=== PATIENT | female | born 1985 | race Caucasian/White ===

== ENCOUNTER 2016-08-29 10:30 | Emergency (ER) | payer MEDICAID ==
[~2016-08-29] VITALS: Ht 175.3 cm; Wt 81.4 kg
[2016-08-29 11:29] LABS: HEMOGLOBIN 14.2 g/dL (11.7-16.4)
[2016-08-29] MEDS ORDERED: SODIUM CHLORIDE 0.9% 1,000ML IVBOLUS ONE (12:30)
[2016-08-29] MEDS ORDERED: SODIUM CHLORIDE FLUSH 10ML SYR IVF ONE (12:30)
[2016-08-29 12:35] LABS: PATH.CAST-FLAG NOT PRESENT; SPERM-FLAG NOT PRESENT; SRC-FLAG NOT PRESENT; XTAL-FLAG NOT PRESENT; YLC-FLAG NOT PRESENT
[2016-08-29] MEDS ORDERED: MISOPROSTOL 200 MCG TABLET PR ONE (13:00)
[2016-08-29] MEDS ORDERED: METHYLERGONOVINE 0.2 MG/ML IM ONE (13:00)
[2016-08-29 13:34] VITALS: BP 114/72
== END 2016-08-29 13:57 | disposition home or self-care (01) ==
LOC: ED 11:50
DX: O03.4 Incomplete spontaneous abortion without complication (principal)
CPT/HCPCS: 36415; 36430; 76801; 81001; 84702; 85025; 86850; 86900; 96372; 99285; J2210; J2790

== ENCOUNTER 2018-11-27 16:22 | Emergency (ER) | payer MEDICAID ==
[~2018-11-27] VITALS: Ht 175.3 cm; Wt 82.0 kg
[2018-11-27 16:25] VITALS: BP 162/93
[2018-11-27] MEDS ORDERED: DIPH,PERTUSS(ACELL),TET VAC/PF 0.5 ML IM-VACC ONE (16:30)
--- NOTE | 2018-11-27 16:35 | NUR ---
PT STATES SHE STEPPED ON 2 NAILS YESTERDAY.
--- NOTE | 2018-11-27 18:12 | NUR ---
Patient/Caregiver given discharge instructions and they have confirmed that they understand the instructions. Patient ambulatory with steady gait. Pt left with all personal belongings.
== END 2018-11-27 18:15 | disposition home or self-care (01) ==
LOC: ED 18:13
DX: S91.332A Puncture wound without foreign body, left foot, initial encounter (principal); W22.8XXA Striking against or struck by other objects, initial encounter; Y93.89 Activity, other specified; Y92.69 Other specified industrial and construction area as the place of occurrence of the external cause; Y99.0 Civilian activity done for income or pay
CPT/HCPCS: 90471; 90715

== ENCOUNTER 2019-04-06 20:08 | Emergency (ER) | payer MEDICAID ==
[~2019-04-06] VITALS: Ht 175.3 cm; Wt 79.5 kg
[2019-04-06 20:56] LABS: MICROSCOPIC NOT IND
[2019-04-06 20:57] LABS: CULTURE INDICATED? NO
--- NOTE | 2019-04-06 20:57 | NUR ---
pt ambulatory to ed accomp by friend. c/o constipation x6 days. took laxatives last night, had small amt liquid stool. c/o pain in RUQ/R flank area. abdomen semi firm. bs gurgly. sts passed gas after took laxatives. denies nausea. also c/o cramping RUQ abdomen. also c/o UTI sx: dysuria, frequency, urgency. urine sent. vss. awaiting md alba. call alba in reach.
--- NOTE | 2019-04-06 21:39 | NUR ---
pt to ct
[2019-04-06 21:42] LABS: BASOPHILS # (AUTO) 0.09 x10^3/uL (0-0.1); BASOPHILS % (AUTO) 1 % (0-1); EOSINOPHILS # (AUTO) 0.28 x10^3/uL (0-0.4); EOSINOPHILS % (AUTO) 2 % (1-7); LYMPHOCYTES # (AUTO) 3.18 x10^3/uL (1-3.4); LYMPHOCYTES % (AUTO) 26 % (22-44); MD NO; MEAN CORPUSCULAR HEMOGLOBIN 33.7 pg (27.0-34.8); MEAN CORPUSCULAR HGB CONC 34.2 g/dL (32.4-35.8); MEAN CORPUSCULAR VOLUME 98.7 fL (80-100); MEAN PLATELET VOLUME 8.6 fL (7.4-10.4); MONOCYTES # (AUTO) 0.49 x10^3/uL (0.2-0.8); MONOCYTES % (AUTO) 4 % (2-9); NEUTROPHILS # (AUTO) 8.22 x10^3/uL (1.8-6.8); NEUTROPHILS % (AUTO) 67 % (42-75); PLATELET COUNT 263 x10^3/uL (130-400); RED BLOOD COUNT 4.59 x10^6/uL (3.82-5.3); RED CELL DISTRIBUTION WIDTH 12.7 % (9.6-15.2)
[2019-04-06 21:52] LABS: ALANINE AMINOTRANSFERASE 50 U/L (12-78); ALBUMIN 3.2 g/dL (3.4-5.0); ANION GAP 5 mmol/L (5-15); CALCIUM 8.6 mg/dL (8.5-10.1); CHLORIDE 106 mmol/L (98-107); CREATININE 0.62 mg/dL (0.55-1.02)
[2019-04-06 21:54] LABS: ALKALINE PHOSPHATASE 117 U/L (45-117); BILIRUBIN,TOTAL 0.6 mg/dL (0.2-1.0); TOTAL PROTEIN 7.1 g/dL (6.4-8.2)
[2019-04-06] MEDS ORDERED: MORPHINE SULFATE 4 MG/ML, 1ML IVPush PRN (22:00)
[2019-04-06] MEDS ORDERED: ONDANSETRON 2MG/ML, 2ML IVPush ONE (22:00)
[2019-04-06] MEDS ORDERED: MORPHINE SULFATE 4 MG/ML, 1ML ONE ×3 (22:00→23:03)
[2019-04-06] MEDS ORDERED: ONDANSETRON 2MG/ML, 2ML ONE ×2 (22:00→22:25)
--- NOTE | 2019-04-06 22:14 | NUR ---
REPORT TO GHISLAINE PHILLIPS
--- NOTE | 2019-04-06 22:15 | NUR ---
received report from JACQUELINE Patterson
--- NOTE | 2019-04-06 22:20 | NUR ---
Assisted in pt care. IV access obtained.
--- NOTE | 2019-04-06 22:35 | NUR ---
Assisted in pt care. Pt medicated per MAR for 8/10 R side pain. VSS. Call light in reach.
--- NOTE | 2019-04-06 23:06 | NUR ---
back from CT scan, states pain still 12/23. re-medicated. VSS
--- NOTE | 2019-04-06 23:54 | NUR ---
ERP at bedside for re-evaluation.
[2019-04-07 00:54] VITALS: BP 131/77
== END 2019-04-07 00:56 | disposition home or self-care (01) ==
LOC: ED 21:16
DX: N83.291 Other ovarian cyst, right side (principal); R10.11 Right upper quadrant pain; R10.31 Right lower quadrant pain; F17.200 Nicotine dependence, unspecified, uncomplicated; J45.909 Unspecified asthma, uncomplicated
CPT/HCPCS: 36415; 74022; 74177; 76700; 80053; 81003; 81025; 83690; 85025; 96374; 96375; 99284; J2270; J2405